=== PATIENT | male | born 1995 | race Caucasian/White ===

== ENCOUNTER 2021-01-10 17:07 | Outpatient (REF) | payer BC, SELFPAY ==
[2021-01-12 11:28] LABS: COVID-19 RT-PCR UVMMC Result Negative (Negative)
== END 2021-01-10 17:08 | disposition home or self-care (01) ==
LOC: NCHCN 17:07
PROVIDERS: PCP Pediatrics; Visit Provider Physician Assistant
DX: Z20.822 Contact with and (suspected) exposure to COVID-19 (principal)
CPT/HCPCS: U0003

== ENCOUNTER 2021-01-13 17:49 | Outpatient (REF) | payer BC, SELFPAY | END 2021-01-13 17:50 | disposition home or self-care (01) | LOC: NCHCN 17:49 | PROVIDERS: PCP Pediatrics; Visit Provider Internal Medicine | DX: J35.1 Hypertrophy of tonsils (principal) | CPT/HCPCS: 87070 ==